=== PATIENT | female | born 1955 | race Caucasian/White ===

== ENCOUNTER → 2025-07-26 12:57 | Outpatient (REF) | payer OTHER, SELFPAY | LOC: WDC 12:57 | PROVIDERS: ATTENDING PHYSICIAN Nurse Practitioner | DX: Z12.31 Encounter for screening mammogram for malignant neoplasm of breast (principal) | CPT/HCPCS: 77063; 77067 ==

== ENCOUNTER → 2025-08-10 08:48 | Outpatient (REF) | payer OTHER, SELFPAY | LOC: RAD 08:48 | PROVIDERS: ATTENDING PHYSICIAN Nurse Practitioner | DX: Z12.4 Encounter for screening for malignant neoplasm of cervix (principal); Z13.820 Encounter for screening for osteoporosis | CPT/HCPCS: 77080 ==